=== PATIENT | male | born 1955 | race Two or more races ===

== ENCOUNTER 2018-12-08 08:22 | Emergency (ER) | payer OTHER ==
[~2018-12-08] VITALS: Ht 170.2 cm; Wt 67.2 kg
[2018-12-08] MEDS ORDERED: LIDOCAINE 1% INJ 50 ML MDV IJ ONE (08:40)
--- NOTE | 2018-12-08 08:50 | NUR ---
patient presented to the ER c/o left middle finger cellulitis, on room air, breathing evenly and unlabored. Denies any pain at this time. connected to the monitor, and pulse ox. kept comfortable. will continue to monitor accordingly. Dr. Greer at bedside for eval.
[2018-12-08 08:56] LABS: BASOPHILS # (AUTO) 0.1 /CMM (0.0-0.2); BASOPHILS % (AUTO) 0.7 % (0.0-2.0); EOSINOPHILS % (AUTO) 0.8 % (0.0-6.0); HEMATOCRIT 47 % (39-51); HEMOGLOBIN 15.7 g/dL (13.5-17.5); LYMPHOCYTES # (AUTO) 1.8 /CMM (0.8-4.8); LYMPHOCYTES % (AUTO) 16.2 % (20.0-44.0); MEAN CORPUSCULAR HGB CONC 34 g/dl (31.0-36.0); MEAN CORPUSCULAR VOLUME 92 fL (80-96); MONOCYTES # (AUTO) 0.8 /CMM (0.1-1.30); MONOCYTES % (AUTO) 6.9 % (2.0-12.0); NEUTROPHILS # (AUTO) 8.3 /CMM (1.8-8.9); NEUTROPHILS % (AUTO) 75.4 % (43.0-81.0); PLATELET COUNT (AUTO) 183 /CMM (150-450); RED BLOOD CELL COUNT(AUTO) 5.09 MIL/uL (4.5-6.0)
[2018-12-08] MEDS ORDERED: VANCOMYCIN 1 GM in IV D5W 250 ML IV ONE (09:00)
[2018-12-08] MEDS ORDERED: LORAZEPAM INJ 2 MG/ML VIAL IV ONE (09:00)
[2018-12-08] MEDS ORDERED: IV NS 0.9% 1,000 ML BAG IV ONE (09:00)
[2018-12-08] MEDS ORDERED: LORAZEPAM INJ 2 MG/ML VIAL ONE (09:00)
[2018-12-08] MEDS ORDERED: PIPERACILLIN /TAZOBACTAM 3.375 G in IV D5W 50 ML IV ONE (09:00)
[2018-12-08 09:05] LABS: CALCIUM, SERUM 8.7 mg/dL (8.5-10.1); CARBON DIOXIDE 28 mmol/L (21-32); CHLORIDE 102 mmol/L (98-107); GLUCOSE 166 mg/dL (74-106); POTASSIUM 3.8 mmol/L (3.5-5.1); SODIUM SERUM 136 mmol/L (136-145); UREA NITROGEN, BLOOD 20 mg/dL (7-18)
--- NOTE | 2018-12-08 09:06 | NUR ---
[facility] 209-1 DX MICHEAL
[2018-12-08 09:12] LABS: ALANINE AMINOTRANSFERASE 19 U/L (12-78); ALBUMIN 3.6 g/dL (3.4-5.0); ALKALINE PHOSPHATASE 89 U/L (46-116); ASPARTATE AMINOTRANSFERASE 16 U/L (15-37); BILIRUBIN,DIRECT 0.1 mg/dL (0.0-0.2); BILIRUBIN,TOTAL 0.6 mg/dL (0.2-1.0); TOTAL PROTEIN, SERUM 7.7 g/dL (6.4-8.2)
--- NOTE | 2018-12-08 09:24 | NUR ---
spoke to rubens santamaria outsole caser: pt capitated to [facility]. Will call back for update
--- NOTE | 2018-12-08 09:44 | NUR ---
Dr christie accepted patient for [facility].
--- NOTE | 2018-12-08 10:29 | NUR ---
room [id number] [phone] HENRY Saucedo for report
--- NOTE | 2018-12-08 10:40 | NUR ---
AMBULANCE TO [facility] ETA [phone] PER KATHY PADDING GLUER
--- NOTE | 2018-12-08 10:58 | NUR ---
CALLED [facility] AND SPOKE TO RYAN FIGUEROA AND REPORT GIVEN FOR JO-ANN.
[2018-12-08 12:55] VITALS: BP 116/70
--- NOTE | 2018-12-08 14:11 | NUR ---
patient left in no apparent distres accompanied by 2 emt's. going to [facility].
== END 2018-12-08 14:07 | disposition short-term general hospital (02) ==
LOC: ER 08:26
DX: L02.512 Cutaneous abscess of left hand (principal); L08.89 Other specified local infections of the skin and subcutaneous tissue; R91.8 Other nonspecific abnormal finding of lung field; I25.10 Atherosclerotic heart disease of native coronary artery without angina pectoris; I25.2 Old myocardial infarction; F17.200 Nicotine dependence, unspecified, uncomplicated; F10.10 Alcohol abuse, uncomplicated; Y90.9 Presence of alcohol in blood, level not specified
CPT/HCPCS: 26010; 36415; 71045; 80048; 80076; 83605; 84484; 85025; 85730; 87040 ×2; 87081; 93005; 96365; 96367; 96375; 99285; A4606; A6402; J2060; J2543; J3370; J3490; J7030; J7060 ×2